=== PATIENT | female | born 1980 | race Caucasian/White ===

== ENCOUNTER → 2017-05-28 | Outpatient (CLI) | payer OTHER ==
[~2017-05-28] MED LIST: ACET-1325 PO; CETI10TA84 PO; CLR10 PO; DICY10CA12 PO; FERR1CAP2 PO; FRCT/ PO; FRN; LEVO200T PO; PRM625 PO; PSEU30TA20 PO; SPEC1TAB; SUMA100T16 PO; VALA500T60 PO; VERA240T20 PO
[2017-05-28 16:57] LABS: BASO % 0.7 %; BASO ABS # 0.05 K/uL (0-0.2); COMPLETE YES; EOS % 1.1 %; HEMATOCRIT 37.9 % (37-47); IG% 0.3 %; LYMPH % 36.2 %; LYMPH ABS # 2.55 K/uL (1.2-3.4); MEAN CELL VOLUME 90.2 fL (80-100); MEAN CORPUSCULAR HGB CONC 32.2 g/dl (32-36); MEAN PLATELET VOLUME 8.6 fL (7.4-10.4); MONO % 9.5 %; NEUT % 52.2 %; PLATELET COUNT 357 K/uL (130-400); WHITE BLOOD COUNT 7.04 K/uL (4.8-10.8)
[2017-05-28 17:05] LABS: ALT/SGPT 34 U/L (12-78); BLOOD UREA NITROGEN 7 mg/dl (7-18); CALCIUM 9.2 mg/dl (8.5-10.1); CARBON DIOXIDE 32 mmol/L (21-32); CHLORIDE 102 mmol/L (98-107); CREATININE 0.86 mg/dl (0.60-1.20); GLUCOSE 90 mg/dl (70-99); POTASSIUM 3.3 mmol/L (3.5-5.1); SODIUM 139 mmol/L (136-145)
[2017-05-28 17:08] LABS: ALKALINE PHOSPHATASE 79 U/L (45-117); AST/SGOT 25 U/L (15-37)
== END | disposition home or self-care (01) ==
LOC: C.LABBC 13:32
PROVIDERS: ATTEND Physician Assistant
DX: R42 Dizziness and giddiness (principal)

== ENCOUNTER → 2017-06-09 | Outpatient (CLI) | payer OTHER ==
[~2017-06-09] MED LIST changes: +GADAVIST IV PRN
--- NOTE | 2017-06-09 18:37 | DIAGNOSTIC IMAGING REPORT ---
Brain and internal auditory canal MRI WITH AND WITHOUT CONTRAST HISTORY: VERTIGO *W/IAC'S* TECHNIQUE: Multiplanar multisequence MRI of the brain and internal auditory canal were performed both before and after the intravenous administration of contrast. COMPARISON STUDY: Brain MRI 12/21/2015. FINDINGS: There are no areas of restricted diffusion to suggest acute infarction. The cerebellar tonsils remain 2 mm below the level the foramen magnum consistent with mild cerebellar tonsillar ectopia. There is a slightly convex border to the pituitary gland which is borderline enlarged measuring 1 cm in height. This has increased in size from the prior study.. The paranasal sinuses are clear. The mastoid air cells are clear. The ventricles and sulci are within normal limits for age. There is no mass, hematoma, midline shift. The major vascular flow-voids at the skull base are well maintained. Postcontrast sequences show no areas of abnormal enhancement. No masses or abnormal enhancement within the bilateral internal auditory canals. No evidence for inner ear dysplasia. The 7th and 8th cranial nerves are normal in course and caliber. IMPRESSION: 1. No acute intracranial abnormality. 2. Normal bilateral internal auditory canals. 3. Slight increase in size of the pituitary gland which demonstrates a convex border. Follow-up dedicated pituitary MRI is recommended to exclude the possibility of a underlying microadenoma. Electronically signed by: Ted Muhammad M.D. 06/09/2017 6:36 PM Dictated Date/Time: 06/09/2017 6:27 PM
== END | disposition home or self-care (01) ==
LOC: C.MRI 17:28
PROVIDERS: ATTEND Physician Assistant
DX: R42 Dizziness and giddiness (principal)

== ENCOUNTER → 2017-06-19 | Outpatient (CLI) | payer OTHER ==
--- NOTE | 2017-06-19 12:24 | DIAGNOSTIC IMAGING REPORT ---
PITUITARY MRI ONLY COMBO HISTORY: Abnormal brain MRI. ENLARGED PITUITARY GLAND TECHNIQUE: Multiplanar multisequence MRI of the pituitary fossa was performed both before and after the intravenous administration of contrast. Dynamic postcontrast imaging of the pituitary gland was also obtained. COMPARISON STUDY: Brain MRI 06/09/2017. FINDINGS: The cerebellar tonsils remain 2 mm below the level of the foramen magnum consistent with mild tonsillar ectopia. There is no significant mass effect along the brainstem. The pituitary gland is top normal in size measuring 8 mm in height. However, there is no significant mass effect at the optic chiasm. The pituitary stalk is midline and normal in caliber. There is normal pituitary bright spot. The pituitary gland enhances homogeneously. Tiny nodular focus of enhancement at the pituitary stalk only seen on image 8 of the sagittal T1 postcontrast sequences is likely artifactual as this is not confirmed on the additional sequences. IMPRESSION: No pituitary/suprasellar masses. Electronically signed by: Ted Muhammad M.D. 06/19/2017 12:23 PM Dictated Date/Time: 06/19/2017 12:16 PM
== END | disposition home or self-care (01) ==
LOC: C.MRI 10:32
PROVIDERS: ATTEND Psychiatry & Neurology Neurology
DX: E23.6 Other disorders of pituitary gland (principal)

== ENCOUNTER 2017-07-23 07:29 | Day surgery (SDC) | payer OTHER ==
[~2017-07-23] VITALS: Ht 166.4 cm; Wt 102.1 kg
[2017-07-23] VITALS (11 sets, daily range): BP systolic 92–117; BP diastolic 50–68; PULSE 60–67; TEMP 36.6–36.8; O2SAT 94–99; Ht 166.4 cm; Wt 102.1 kg
[~2017-07-23 07:29] MED LIST changes: -ACET-1325 PO; -CETI10TA84 PO; -FRCT/ PO; -GADAVIST IV PRN; -LEVO200T PO; -PSEU30TA20 PO
[2017-07-23] MEDS ORDERED: LEVO200T PO (08:42)
[2017-07-23] MEDS ORDERED: FRCT/ PO (08:42)
[2017-07-23] MEDS ORDERED: CETI10TA84 PO (08:42)
[2017-07-23] MEDS ORDERED: PSEU30TA20 PO (08:43)
[2017-07-23 10:39] LABS: CSF TOTAL PROTEIN 34.4 mg/dl (15.0-45.0)
--- NOTE | 2017-07-23 11:05 | DIAGNOSTIC IMAGING REPORT ---
LUMBAR PUNCTURE DIAGNOSTIC CLINICAL HISTORY: 36 years-old Female presenting with papilledema, concern for pseudotumor cerebri. COMPARISON: Brain MR from 06/09/2017. PROCEDURE: The procedure, risks and benefits were discussed with the patient including the risk of spinal headache, bleeding and infection. The patient agreed to the procedure and informed written consent was obtained. The procedure was performed by Dr. Aguero following a timeout. The L2-3 interlaminar space was targeted. Skin overlying the space was prepped and draped in the usual aseptic fashion and local anesthesia was achieved with 1% lidocaine. Under intermittent fluoroscopic guidance, a 20-gauge x 3 1/2 in. Sprotte needle was inserted into the thecal sac. Opening pressure was obtained and prone positioning, which measured 28 cmH2O. A total of 10 mL of clear, colorless cerebral spinal fluid was obtained and spread amongst 4 vials. The patient tolerated the procedure well. There were no immediate complications. The specimens were sent to the laboratory at the request of the referring physician. Reference range: Normal opening pressure 6-25 cmH2O (95% reference interval for lateral decubitus positioning). Fluoroscopy dosage: Not available. mGy. Fluoroscopy time: 0.4 minutes. Number of fluoroscopic spot images: 0. IMPRESSION: 1. Successful fluoroscopic guided lumbar puncture with removal of 10 mL of clear, colorless cerebral spinal fluid. No immediate complications. 2. Elevated opening pressure, which could be compatible with pseudotumor cerebri in the appropriate clinical setting. Electronically signed by: Lj Aguero M.D. 07/23/2017 11:04 AM Dictated Date/Time: 07/23/2017 11:03 AM
--- NOTE | 2017-07-23 11:06 | Discharge Instructions ---
Discharge Instructions Procedure Procedure Date: Jul 23, 2017. Reason for visit: Papladema, R/O Psuedo Tumor Cerebri. Discharge Discharge Date: Jul 23, 2017. Discharge Diagnosis: Successful fluoroscopic guided lumbar puncture with elevated opening pressure. Medications Restart Stopped Medication(s): Resume home meds. Instructions Activity Recommendations: No limitations Return to School/Work: no limitations Recommended Home Diet: No Limitations Provider Instructions: Lumbar Puncture performed with Fluoroscopic guidance [ L2-3] level with [20G ] needle. No complications. Allergies Coded Allergies: Latex (Unverified Allergy, Intermediate, HIVES, 07/23/17) [facility] Recommendations: Call your doctor if: * Temperature above 101 degrees * Pain not relieved by pain medicine ordered * There is increased drainage or redness from any incision * You have any unanswered questions or concerns. Your Doctors Instructions noted above were prepared by provider Lj Aguero. Patient Signature Section: Patient Instructions Signature Page Therese Martin Patient (or Guardian) Signature/Date: I have read and understand the instructions given to me by my caregivers. Caregiver/RN/Doctor Signature/Date: The above-named patient and/or guardian has received patient instructions on this date. + Original Patient Signature Page (only) stays with chart. Please make copy for patient.
[2017-07-23 11:10] LABS: CSF APPEARANCE CLEAR; CSF COLOR COLORLESS; CSF XANTHOCHROMIC NO XANTHOCHROMIA
[2017-07-23] MEDS ORDERED: ACETAMINOPHEN 500 MG TAB PO PRN (11:15)
== END 2017-07-23 14:15 | disposition home or self-care (01) ==
LOC: C.ACU 07:29
PROVIDERS: ATTEND Psychiatry & Neurology Neurology
DX: H47.10 Unspecified papilledema (principal)

== ENCOUNTER → 2018-01-01 | Outpatient (CLI) | payer OTHER ==
[~2018-01-01] VITALS: Ht 167.6 cm; Wt 98.6 kg
[~2018-01-01] MED LIST changes: +ACET500C12 PO; -DICY10CA12 PO; +ERGO500037 PO; +ESCI1TAB6 PO; -FERR1CAP2 PO; +FRCT/ PO; -FRN; +LEVO200T PO; +LEVO200T6 PO; +PSEU30TA20 PO; -SPEC1TAB
[2018-01-01 10:30] VITALS: BP 110/68; PULSE 72; Ht 167.6 cm; Wt 98.6 kg
== END | disposition home or self-care (01) ==
LOC: C.NEUR 10:00
PROVIDERS: ATTEND Internal Medicine Pulmonary Disease
DX: G47.33 Obstructive sleep apnea (adult) (pediatric) (principal)

== ENCOUNTER → 2018-01-12 | Outpatient (CLI) | payer OTHER ==
[~2018-01-12] MED LIST changes: +ESTR0.0510 TD
--- NOTE | 2018-01-14 22:36 | POLYSOMNOGRAPH REPORT ---
CLINICAL DATA: The patient is a 37-year-old female with a history of pseudotumor cerebri. She has a history of snoring, disturbed nocturnal sleep, and headaches. Her BMI is 35.09. This was an in-lab overnight diagnostic sleep study. Her [place] sleepiness scale score is 3 out of a possible 24. SLEEP ARCHITECTURE: The total sleep period was 406.5 minutes. The total sleep time was 401 minutes. The sleep efficiency was normal at 95%. The sleep latency was normal at 13.5 minutes. Wake after sleep onset was normal at 5.5 minutes. The REM latency was 66 minutes. There were 3 REM periods during the night. Sleep consisted of stage N1 2%, stage N2 64%, stage N3 17%, stage REM 17%. AROUSAL DATA: The patient had a total of 49 arousals including 9 spontaneous arousals, 5 respiratory arousals, 28 PLM arousals, and 8 snoring arousals. The arousal index was 7. PLM DATA: The patient had 278 periodic limb movements of sleep for a PLM index of 41.6. There were 28 arousals, associated with limb movements for a PLM arousal index of 4.2. ECHOCARDIOGRAM: The cardiac rates ranged from 43-81 beats per minute. The average heart rate was 55 beats per minute. No arrhythmia noted. RESPIRATORY DATA: The patient had a total of 35 respiratory events including 6 obstructive apneas and 29 hypopneas. Hypopneas were scored according to the 4% desaturation rule. The longest apnea was 20.6 seconds. The mean duration of the hypopneas was 19.9 seconds. The apnea hypopnea index was 5.2 events per hour. This reflects very mild obstructive sleep apnea. OXIMETRY DATA: The average saturation for the night was 94%. The lowest actual saturation was 89%. The lowest recorded saturation was 73% and this was a technical issue. HOME CHILD CARE PROVIDER COMMENTS: The patient slept in the right and supine positions. No cardiac arrhythmia noted. PLMs noted. No bruxism noted. Snoring was noted and scored as a 3 on a scale of 1 through 5. The patient did not use the restroom during the night. At 2:14 a.m., she rolled from the supine position to her right side and put her hand with the oximeter under her head and had some false low oximeter readings for approximately 16 minutes. IMPRESSION: 1. Very mild obstructive sleep apnea. 2. Periodic limb movement disorder. 3. Inadequate sleep hygiene by history. COMMENTS: The patient slept much better than what she described her sleep at home. Her sleep was very well consolidated. Her sleep efficiency was high. She had a mild number of respiratory events, most of which occurred in the last 1 hour of sleep. RECOMMENDATIONS: 1. The patient should be advised of the appropriate principles of sleep hygiene including having a regular sleep-wake schedule and allowing approximately 7.5 hours of sleep time per night. 2. The patient gave a history of excessive caffeine intake. She should avoid caffeine after 12 noon. 3. The patient has very mild sleep apnea. It would be suggested that she avoid sleeping in the supine position. Typically there are more respiratory events while supine and in this study, the apnea hypopnea index supine was 10. 4. The patient has frequent periodic limb movements. She does take escitalopram, which could contribute to that. Consideration is given to doing a serum ferritin level and if it is less than 50, advising iron supplementation. 5. Weight loss is advised in light of the elevation of BMI at 35.09. 6. Consideration could be given to a trial of nasal CPAP. MTDD
== END | disposition home or self-care (01) ==
LOC: C.NEUR 21:00
PROVIDERS: ATTEND Internal Medicine Pulmonary Disease
DX: G47.33 Obstructive sleep apnea (adult) (pediatric) (principal)

== ENCOUNTER → 2018-02-05 | Outpatient (CLI) | payer OTHER ==
[~2018-02-05] VITALS: Ht 167.6 cm; Wt 94.7 kg
[~2018-02-05] MED LIST changes: -ESCI1TAB6 PO; -PRM625 PO
[2018-02-05 14:43] VITALS: BP 132/88; PULSE 68; Ht 167.6 cm; Wt 94.7 kg
== END | disposition home or self-care (01) ==
LOC: C.NEUR 13:33
PROVIDERS: ATTEND Physician Assistant
DX: G47.30 Sleep apnea, unspecified (principal); D64.9 Anemia, unspecified